=== PATIENT | female | born 1970 | race African-American/Black ===

== ENCOUNTER 2018-11-12 09:11 | Observation (INO) ==
--- NOTE | 2018-11-12 09:47 | PROVIDER DOCUMENTATION ---
HPI-Syncope/Dizziness - General Chief Complaint: Syncope Stated Complaint: BLACKED OUT/FELL Time Seen by Provider: 11/12/18 09:35 Allergies/Adverse Reactions: Patient Allergies Allergy/AdvReac Type Severity Reaction Status Date / Time No Known Allergies Allergy Verified 11/12/18 09:55 Home Medications: Home Medication List Medication Instructions Recorded Confirmed Last Taken Type LISINOpril [Prinivil] 20 mg PO DAILY 11/12/18 11/12/18 Unknown History - History of Present Illness-Syncope/Dizzy Nature of Presenting Problem: Asymptomatic syncope walking down the hallway at home this past Saturday and this morning at work (the [employer] nearby), woke up on the floor and awake and alert without nausea or confusion. Happened once a year ago. 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 (If syncope resulted in an injury.): reports: none Current Symptoms: reports: none/feels normal Recently Seen Here or By Another Healthcare Provider: No Review of Systems - Adult - REVIEW OF SYSTEMS - ADULT Constitutional: reports: no symptoms reported Eyes: reports: no symptoms reported Ears, Nose, Mouth & Throat: reports: no symptoms reported Cardiovascular: reports: syncope Respiratory: reports: no symptoms reported Gastrointestinal: reports: no symptoms reported Genitourinary: reports: no symptoms reported Musculoskeletal: reports: no symptoms reported Integumentary: reports: no symptoms reported Neurological: reports: no symptoms reported Psychiatric: reports: no symptoms reported Endocrine: reports: no symptoms reported Hematologic/Lymphatic: reports: no symptoms reported Allergic/Immunologic: reports: no symptoms reported All Other Systems: Reviewed and Negative Past History - Adult - PAST MEDICAL HISTORY-ADULT Review of Records: reports: Nursing Assessment Review, Medications Reviewed Major Childhood Illnesses: reports: denies history Cardiovascular: reports: HTN Other Conditions: reports: denies history - PRIOR SURGERIES/PROCEDURES Surgical/Procedure History: reports: reviewed, not pertinent - PRIOR HOSPITALIZATIONS Prior Hospitalizations: reports: none - IMMUNIZATION STATUS Childhood Immunizations: See Nurse Assessment Flu Vaccine: See Nurse Assessment - FAMILY HISTORY Family History: reviewed, not pertinent Physical Exam-General - PHYSICAL EXAM-ADULT Initial Vital Signs Reviewed: Yes - CONSTITUTIONAL General Appearance: appears well, alert, no apparent distress - EYES Eyes: PERRL/EOMI, pink conjunctivae - HEAD, EARS, NOSE, MOUTH & THROAT HENMT: moist mucous membranes - NECK Neck: supple - RESPIRATORY Respiratory: lungs clear, normal breath sounds, no pleuratic chest pain, no respiratory distress - CARDIOVASCULAR Cardiovascular: normal peripheral pulses, regular rate, rhythm - GASTROINTESTINAL (ABDOMEN) Abdominal Exam: non tender, soft, no pulsatile mass - LYMPHATIC Lymphatic: no adenopathy - MUSCULOSKELETAL Extremity: normal gait - SKIN Integumentary: normal color, normal turgor, warm/dry - NEUROLOGIC Neurologic: grossly normal, no motor/sensory deficits - PSYCHIATRIC Psych/Mental Status: normal mood/affect, normal thought content, normal thought process, oriented x 3 Progress - PLAN OF CARE/RESULTS Progress/Plan/Lab Results: Vital Signs - 8 hr 11/12/18 09:16 11/12/18 10:01 11/12/18 11:37 Temperature 97.5 F L Pulse Rate 74 57 L Pulse Rate [Sitting] 68 Pulse Rate [Standing] 66 Pulse Rate [Supine] 66 Respiratory Rate 16 Blood Pressure 140/085 143/76 Blood Pressure [Sitting] 154/93 Blood Pressure [Standing] 145/95 Blood Pressure [Supine] 145/108 O2 Sat by Pulse Oximetry 99 100 11/12/18 13:44 Temperature Pulse Rate 59 L Pulse Rate [Sitting] Pulse Rate [Standing] Pulse Rate [Supine] Respiratory Rate 18 Blood Pressure 135/91 Blood Pressure [Sitting] Blood Pressure [Standing] Blood Pressure [Supine] O2 Sat by Pulse Oximetry 100 Laboratory Results - last 24 hr 11/12/18 11/12/18 11/12/18 10:12 10:12 10:12 WBC 6.16 RBC 4.33 Hgb 11.6 L Hct 35.6 L MCV 82.2 MCH 26.8 L MCHC 32.6 L RDW Std Deviation 14.8 H Plt Count 290 MPV 9.9 Immature Gran % (Auto) 0.3 Neut % (Auto) 53.7 Lymph % (Auto) 39.3 [place] % (Auto) 5.7 Eos % (Auto) 0.8 Baso % (Auto) 0.2 Immature Gran # (Auto) 0.02 Neut # (Auto) 3.31 Lymph # (Auto) 2.42 [place] # (Auto) 0.35 Eos # (Auto) 0.05 Baso # (Auto) 0.01 PT INR PTT (Actin FS) D-Dimer, Quantitative 0.67 H Sodium 141 Potassium 4.3 Chloride 106 Carbon Dioxide 25 Anion Gap 11 BUN 14 Creatinine 1.0 H Estimated GFR/1.73 m2 59 BUN/Creatinine Ratio 14 Glucose 106 H Calculated Osmolality 282 Calcium 8.8 Total Bilirubin 0.50 AST 16 ALT 15 Alkaline Phosphatase 98 Troponin T Total Protein 7.2 Albumin 4.3 Globulin 3.0 Albumin/Globulin Ratio 1.0 11/12/18 11/12/18 10:12 10:12 WBC RBC Hgb Hct MCV MCH MCHC RDW Std Deviation Plt Count MPV Immature Gran % (Auto) Neut % (Auto) Lymph % (Auto) [place] % (Auto) Eos % (Auto) Baso % (Auto) Immature Gran # (Auto) Neut # (Auto) Lymph # (Auto) [place] # (Auto) Eos # (Auto) Baso # (Auto) PT 12.6 INR 0.90 PTT (Actin FS) 32.1 D-Dimer, Quantitative Sodium Potassium Chloride Carbon Dioxide Anion Gap BUN Creatinine Estimated GFR/1.73 m2 BUN/Creatinine Ratio Glucose Calculated Osmolality Calcium Total Bilirubin AST ALT Alkaline Phosphatase Troponin T < 0.010 Total Protein Albumin Globulin Albumin/Globulin Ratio Orders Category Date Time Status Cardiac Monitoring DIRECTED Care 11/12/18 09:39 Active ED: Orthostatic Vital Signs (E as directed Care 11/12/18 09:41 Active Oxygen Therapy- ED Nursing DIRECTED Care 11/12/18 09:39 Active Saline Loc NOW Care 11/12/18 09:[address] HEAD W/O CONTRAST [CT] Stat Exams 11/12/18 13:20 Completed CTA [CT ANGIOGRM PULMONARY ARTERIES] [CT] Stat Exams 11/12/18 11:05 Completed CBC WITH ELECTRONIC DIFF [HEME] Stat Lab 11/12/18 10:12 Completed COMPREHENSIVE METABOLIC PANEL [CHEM] Stat Lab 11/12/18 10:12 Completed D-DIMER [COAG] Stat Lab 11/12/18 10:12 Completed PROTIME WITH INR [COAG] Stat Lab 11/12/18 10:12 Completed PTT [COAG] Stat Lab 11/12/18 10:12 Completed TROPONIN T Stat Lab 11/12/18 10:12 Completed 0.9% Sodium Chloride Inj [Ns] 1,000 ml Med 11/12/18 11:04 Discontinued IV 999 mls/hr CP/SOB/Palp >45 yrs of Age Stat Oth 11/12/18 09:39 Ordered EKG [EKG] Stat Ther 11/12/18 09:39 Draft Labs unremarkable except ddimer, CTA neg, call out to Dr Diane 12:16 13:13 Roxi returned call, gave him heads up on HPI work up, agreed needs admit , will follow, call out to [facility] and getting head CT to complete the work up 1321 after d/w pt and results, concerns, head ct needed and admit, they agreed 1327 spoke w [facility] re HPI exam results thus far, talk w Roxi, getting head CT 1347 CT head negative, admitted here Result Diagrams: 11/12/18 10:12 11/12/18 10:12 - EKG 1 Time of EKG reading by physician:: 10:06 EKG Read and Signed by:: Angelica Goyal EKG Interpretation (*Must complete 3 of following elements*): Normal Rate: 62 Rhythm: NSR [place]: normal QRS: normal CO Interval: normal ST Wave: normal Prior EKG Comparison: no prior EKG Departure - Departure Date of Disposition Decision: 11/12/18 Time of Disposition Decision: 13:27 DIAGNOSIS: Syncope Disposition: ADMITTED INPATIENT 09 Certified Medical Emergency: Emergent Condition: Good Additional Freetext Instructions: Admit to [facility] 13:[address] pending Referrals and Follow-Ups: Bryson Casas MD [Primary Care Provider] - - Critical Care Note This patient required my direct & personal management of CC.: No Attestation - Physician/ ALEJANDRO Attestation The physician spent face to face time with patient:: Yes Advanced Practice Provider documentation review:: Supervising physician onsite and consulted in the evaluation and care of this patient. The physician did have a face to face encounter with the patient.
--- NOTE | 2018-11-12 10:19 | EKG Report ---
Test Performed on : 11/12/2018 09:57:36 AM Test Reason : syncope Blood Pressure : / mmHG Vent. Rate : 062 BPM Atrial Rate : 062 BPM P-R Int : 160 ms QRS Dur : 098 ms QT Int : 446 ms P-R-T Axes : 017 000 009 degrees QTc Int : 452 ms Normal sinus rhythm. Moderate voltage criteria for LVH, may be normal variant Borderline ECG No previous ECGs available Unconfirmed Result
[2018-11-12 10:25] LABS: BASO# 0.01 X1000 (0.0-0.2); BASO% 0.2 % (0.0-0.8); EOS# 0.05 X1000 (0.0-0.7); EOS% 0.8 % (0.0-10.0); HEMATOCRIT 35.6 % (37.0-47.0); HEMOGLOBIN 11.6 g/dL (12.0-16.0); IMM GRAN# 0.02 X1000 (0.0-0.04); IMM GRAN% 0.3 % (0.0-0.5); LYMPH# 2.42 X1000 (1.2-3.4); LYMPH% 39.3 % (20.5-51.1); MCH 26.8 PG (27-31); MCHC 32.6 g/dL (33-37); MCV 82.2 FL (81-99); MONO# 0.35 X1000 (0.11-0.59); MONO% 5.7 % (1.7-9.3); MPV 9.9 FL (7.4-10.4); NEUT# 3.31 X1000 (1.4-6.5); NEUT% 53.7 % (42.2-75.2); PLT 290 X1000 (130-400); RBC 4.33 XMIL (4.2-5.4); RDW 14.8 % (11.5-14.5); WBC 6.16 X1000 (4.8-10.8)
[2018-11-12 10:38] LABS: INR 0.9; PROTIME 12.6 Seconds (11.0-16.0)
[2018-11-12 10:39] LABS: PTT 32.1 Seconds (22.3-41.8)
[2018-11-12 10:56] LABS: ALBUMIN 4.3 g/dL (3.5-5.0); CALCIUM 8.8 mg/dL (8.8-10.2); POTASSIUM 4.3 mmol/L (3.5-5.1); TOTAL BILIRUBIN 0.5 mg/dL (0.20-1.00); TOTAL PROTEIN 7.2 g/dL (6.3-8.3)
[2018-11-12] MEDS ORDERED: NS 1,000 ML IV ONE (11:04)
--- NOTE | 2018-11-12 11:35 | Diag Imaging Result Doc PS360 ---
EXAM: CT ANGIOGRM PULMONARY ARTERIES HISTORY: syncope elevated ddimer TECHNIQUE: CT chest with intravenous contrast. Pulmonary arterial protocol with MIP images. COMPARISON: None. FINDINGS: No pleural effusions. Mild cardiomegaly. No thoracic aortic aneurysm or dissection. Normal opacification of the pulmonary arteries and their major branches. No enlarged lymph nodes. There are no infiltrates. No bronchiectasis. No lung mass identified. IMPRESSION: No pulmonary emboli. This exam was performed using automated exposure control, adjustment of mA or kV according to patient size, and/or use of iterative reconstruction technique. Electronically signed by Diego Bae 11/12/2018 11:33 AM
--- NOTE | 2018-11-12 13:43 | Diag Imaging Result Doc PS360 ---
EXAM: CT HEAD W/O CONTRAST HISTORY: syncope TECHNIQUE: CT head without contrast COMPARISON: None. FINDINGS: No parenchymal hemorrhage. No epidural or subdural hematoma. No subarachnoid hemorrhage. No mass identified on this noncontrasted exam. No hydrocephalus. No sinus opacification. IMPRESSION: No hemorrhage. Negative brain CT without contrast. This exam was performed using automated exposure control, adjustment of mA or kV according to patient size, and/or use of iterative reconstruction technique. Electronically signed by Diego Bae 11/12/2018 1:40 PM
--- NOTE | 2018-11-12 17:03 | HISTORY AND PHYSICAL ---
CHIEF COMPLAINT: Syncope. HISTORY OF PRESENT ILLNESS: This is a 48-year-old female who presents to the emergency room after having a syncopal episode. She states she had her first episode on Saturday. She was walking down the [place] at her home and she woke up on the floor. She denied any confusion, any incontinence of stool or urine, any nausea or vomiting. She states she had another episode this morning. She was walking from her car and passed out. Once again she had no incontinence of stool or urine, or any nausea or vomiting. She states she did this once a year ago, she was not evaluated at this time. She denies Chest pain, palpitations, dizziness, weakness. PAST MEDICAL HISTORY: Mitral valve prolapse, hypertension. PAST SURGICAL HISTORY: Breast biopsy and vaginal ablation. SOCIAL HISTORY: She denies any alcohol, tobacco or illicit drug use. 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 REVIEW OF SYSTEMS: Discussed with the patient, with pertinent positives stated in the HPI. She denied any dizziness, any chest pain, any palpitations, any nausea, vomiting, diarrhea, constipation, any black or bloody vomitus or stools, any hematuria, dysuria, frequency, urgency or any recent injuries. PHYSICAL EXAMINATION: GENERAL: This is a 48-year-old female who is sitting up in the bed in no distress. VITAL SIGNS: Blood pressure is 131/92 with a heart rate of 62, respirations are 18, temperature is 97.8 degrees with room air saturations 100%. EYES: Pupils are equal, round and reactive to light. EOMs are intact. Sclerae are anicteric. HEENT: Head is normocephalic, atraumatic. Mucous membranes are moist. NECK: Supple, with trachea midline. CARDIOVASCULAR: Regular rate and rhythm. S1 and S2 appreciated. She has no lower extremity edema. Peripheral pulses are palpable x4 extremities. Calves are nontender to palpation. PULMONARY: Breath sounds are clear, with no increased work of breathing noted. Chest rises and falls symmetrically with respiration. Chest wall is nontender to palpation. GASTROINTESTINAL: Abdomen is soft, nontender, nondistended with bowel sounds in all 4 quadrants. GENITOURINARY: She has no CVA nor suprapubic tenderness. NEUROLOGIC: She is alert and oriented x3 with cranial nerves 2-12 grossly intact. LABORATORY DATA: WBC is 6.1 with a hemoglobin of 11.6, hematocrit 35.6, and platelets of 290,000. D-dimer is 0.67. Sodium 141, potassium 4.3, BUN 14, creatinine 1 with a glucose of 106. Troponin was negative. DIAGNOSTIC DATA: 1. CT of the head revealed no hemorrhage; negative brain CT without contrast. 2. CT angiogram pulmonary arteries revealed no pulmonary emboli. ASSESSMENT: 1. Syncope. 2. Hypertension. 3. History of mitral valve prolapse. PLAN: The patient will be admitted to the medical-surgical unit at [place]. She will be placed on telemetry. We will get orthostatic vital signs every 12 hours. We will obtain a bilateral lower extremity Doppler as well as an echocardiogram. We will identify her home medications and continue these as appropriate. Repeat a CBC and CMP in the morning. Further treatments pending hospital course. Dictated by NEIL Crum for Eros Lujan MD This chart was documented by, NEIL Crum and accurately reflects the services performed, treatment plan and medical decisions as attested by the providers signature Eros Lujan MD. cc: NEIL Crum MD MTDD
--- NOTE | 2018-11-12 17:38 | Extremity Venous Study ---
EXAM: Venous U/S Bilateral Legs HISTORY: elevated ddimer, syncope TECHNIQUE: Bilateral lower extremity venous Doppler ultrasound COMPARISON: None. FINDINGS: Right: There is good flow and compressibility in the veins of the right lower extremity. No thrombus. Left: There is good flow and compressibility in the veins of the left lower extremity. No thrombus. IMPRESSION: No evidence of deep venous thrombosis within either lower extremity. Electronically signed by Diego Bae 11/12/2018 5:36 PM
[2018-11-12] MEDS: TYLENOL PO PRN (20:55)
--- NOTE | 2018-11-13 00:20 | HISTORY AND PHYSICAL ---
ADDENDUM: Patient seen and examined by myself. Full note dictated and discussed with nurse practitioner. Patient is a very pleasant 48-year-old female who actually had a syncopal episode at home 3 days ago and then decided to come today after her second syncopal episode. In fact, she was quite strongly encouraged by her family. Currently, she is awake and alert. She is in no distress. She had no pre-warning symptoms prior to each of the syncopal episodes. CT of the head is negative. CT pulmonary angiogram is negative. We will admit patient the hospital, place her on telemetry. We will ask Cardiology for assistance and will follow. cc: Eros Lujan MD
[2018-11-13 06:38] LABS: BASO# 0.01 X1000 (0.0-0.2); BASO% 0.2 % (0.0-0.8); EOS# 0.07 X1000 (0.0-0.7); EOS% 1.4 % (0.0-10.0); HEMATOCRIT 35.1 % (37.0-47.0); HEMOGLOBIN 11.4 g/dL (12.0-16.0); IMM GRAN# 0.01 X1000 (0.0-0.04); IMM GRAN% 0.2 % (0.0-0.5); LYMPH# 2.35 X1000 (1.2-3.4); LYMPH% 45.4 % (20.5-51.1); MCH 26.5 PG (27-31); MCHC 32.5 g/dL (33-37); MCV 81.6 FL (81-99); MONO# 0.28 X1000 (0.11-0.59); MONO% 5.4 % (1.7-9.3); MPV 9.9 FL (7.4-10.4); NEUT# 2.46 X1000 (1.4-6.5); NEUT% 47.4 % (42.2-75.2); PLT 289 X1000 (130-400); RDW 14.7 % (11.5-14.5); WBC 5.18 X1000 (4.8-10.8)
[2018-11-13 06:48] LABS: AGAP 13; ALBUMIN 3.9 g/dL (3.5-5.0); ALKALINE PHOSPHATASE 84 U/L (32-104); BUN 9 mg/dL (8-22); CALCIUM 8.7 mg/dL (8.8-10.2); CHLORIDE 106 mmol/L (98-107); COSMO 282; CREATININE 0.9 mg/dL (0.5-0.9); ESTIMATED GFR > 60; GLUCOSE 98 mg/dL (70-104); GOT 15 U/L (10-30); GPT 15 U/L (10-36); POTASSIUM 3.7 mmol/L (3.5-5.1); SODIUM 142 mmol/L (136-145); TCO2 23 mmol/L (25-35); TOTAL PROTEIN 7.1 g/dL (6.3-8.3)
[2018-11-13 07:52] VITALS: BP 144/95
[2018-11-13] MEDS: TYLENOL PO PRN (09:08)
[2018-11-13] MEDS ORDERED: FLU VACCINE IM ONE (14:07)
--- NOTE | 2018-11-13 19:07 | ECHO REPORT ---
ORDER DATE: 11/12/2018 MEASUREMENTS: Left ventricular end-diastolic diameter 4.8, end systolic diameter 3.3, septal thickness 0.9, posterior wall thickness 0.9, aortic root 3.0, left atrium 3.6. SUMMARY: 1. Adequate quality study. 2. Aortic valve is trileaflet and opens normally on 2-dimensional images. Peak gradient across the aortic valve is 17 mmHg. Mitral, tricuspid and pulmonic valves are without evidence of structural abnormality. There is trace mitral regurgitation, trace tricuspid regurgitation, and trace pulmonic insufficiency. The aortic root is normal size. 3. Normal left ventricular dimensions suggested. Estimated left ejection fraction is 40% to 45% in the setting of mild global hypokinesis. Left atrium, right atrium, right ventricle are normal size with grossly preserved right ventricular systolic function. 4. No pericardial effusion. 5. Appearance of inferior vena cava suggests normal central venous pressure. cc: MD Neva Mancia CRNP
--- NOTE | 2018-11-13 22:19 | DISCHARGE SUMMARY ---
ADMISSION DATE: 11/12/2018 DISCHARGE DATE: 11/13/2018 DIAGNOSES: 1. Syncope. 2. Hypertension. 3. History of mitral valve prolapse. 4. Elevated D-dimer. DIAGNOSTICS: 1. 11/12/2018 CTA pulmonary arteries revealed no pulmonary emboli. No pleural effusions. Mild cardiomegaly. No thoracic aortic aneurysm or dissection. Normal opacification of the pulmonary arteries and their major branches. No enlarged lymph nodes. There are no infiltrates. No bronchiectasis. No lung mass identified. 2. CT of the head revealed no hemorrhage, negative brain CT without contrast. 3. Bilateral lower extremity Doppler revealed no evidence of deep vein thrombosis within either lower extremity. HOSPITAL COURSE: Ms Islas presented to the emergency room after having a 2nd syncopal episode in the last 5 days. She has had no further syncopal episodes. She has remained on telemetry with no ectopy noted. Orthostatic vital signs every 12 hours are negative. CTA pulmonary and bilateral lower extremity Dopplers were performed because of the elevated D-dimer and both revealed no DVT or pulmonary embolus. Of course, her CT of the head was negative. She had no further syncopal episodes. Today, she states that she feels too back to her normal self. DISCHARGE PHYSICAL EXAMINATION: Cardiovascular: Regular rate and rhythm. S1 and S2 appreciated. She has no murmurs. She has no lower extremity edema with peripheral pulses palpable x4 extremities. Calves are nontender to palpation. Pulmonary: Breath sounds are clear with no increased work of breathing noted. Chest rises and falls symmetrically with respiration. Gastrointestinal: Abdomen is soft, nontender, nondistended with bowel sounds in all 4 quadrants. Neurologic: She is alert and oriented x3. Skin: Warm and dry. Discharge vital signs: Blood pressure is 132/86 with a heart rate of 62, respirations are 20, temperature is 97.5 degrees oral with room air sats 99-100%. DISCHARGE MEDICATIONS: 1. Linzess 145 mcg p.o. b.i.d. 2. Prinivil 20 mg p.o. daily. 3. Tylenol 650 p.o. q.6 hours p.r.n. FOLLOWUP: 1. She needs to follow up with her primary care physician, Dr. Bryson Casas, in the next week. She needs to call to schedule an appointment. 2. John Marin, cardiology. The office will call her to schedule an event monitor as well as a follow-up appointment and at that time her echocardiogram results will be discussed also. 3. She has been instructed to return to the emergency room for any further syncopal episodes, any dizziness, any chest pain, palpitations, shortness of breath, cough, any temperature greater than 101, chills, any black or bloody vomitus or stools or for any questions or concerns that she may have. 4. She is being discharged home in stable condition with family members. TIME SPENT: This is a greater than 30 minute discharge. Dictated by NEIL Curm for Eros Lujan MD This chart was documented by, NEIL Crum and accurately reflects the services performed, treatment plan and medical decisions as attested by the providers signature Eros Lujan MD. cc: NEIL Crum MD Edwin K. Matthews, MD
--- NOTE | 2018-11-14 20:35 | DISCHARGE SUMMARY ---
ADMISSION DATE: 11/12/2018 DISCHARGE DATE: 11/13/2018 ADDENDUM: Patient seen and examined by myself. Full note dictated and discussed with nurse practitioner. On discharge the patient is awake, alert, currently in no distress. Notes that she is feeling better. She is ambulating back and forth to the restroom without any difficulty. She has had no further syncope. We will discharge her home. She will follow up outpatient with her primary care. She will need to have a Holter monitor. This has been set up by Cardiology. cc: Eros Lujan MD
== END 2018-11-13 14:34 | disposition home or self-care (01) ==
LOC: P.ED 09:11 → INTOOBSV 09:12 → P.MEDSURG 09:12
PROVIDERS: ATTEND Family Medicine
CPT/HCPCS: 70450; 71275; 80053; 82948; 84484; 85025; 85379; 85610; 85730; 90471; 90686; 93005; 93306; 93880; 93970; 96360; 99285; A9270; G0008; G0378; J7030; Q9967; XXXXX